=== PATIENT | male | born 1945 | race Caucasian/White ===

== ENCOUNTER → 2017-03-08 | Outpatient (CLI) | payer OTHER ==
[~2017-03-08] MED LIST: ASPEC325 PO; CLB200 PO; EZET10TA63 PO; HYDR-5688 PO; OXYSR10 PO; TIMOLOL OPB; TRAM-10 PO
[2017-03-08 13:59] LABS: BASO % 0.5 %; BASO ABS # 0.04 K/uL (0-0.2); COMPLETE YES; EOS % 2.9 %; HEMATOCRIT 43.3 % (42-52); IG% 0.1 %; LYMPH % 32.8 %; LYMPH ABS # 2.45 K/uL (1.2-3.4); MEAN CORPUSCULAR HEMOGLOBIN 31.2 pg (25-34); MEAN CORPUSCULAR HGB CONC 34.6 g/dl (32-36); MEAN PLATELET VOLUME 10.2 fL (7.4-10.4); MONO % 6.6 %; NEUT % 57.1 %; PLATELET COUNT 219 K/uL (130-400); RED BLOOD COUNT 4.81 M/uL (4.7-6.1); WHITE BLOOD COUNT 7.48 K/uL (4.8-10.8)
[2017-03-08 14:07] LABS: ALT/SGPT 37 U/L (12-78); AST/SGOT 22 U/L (15-37); BLOOD UREA NITROGEN 17 mg/dl (7-18); BUN/CREATININE RATIO 14.6 (10-20); CALCIUM 8.8 mg/dl (8.5-10.1); CARBON DIOXIDE 25 mmol/L (21-32); CHLORIDE 107 mmol/L (98-107); CREATININE 1.16 mg/dl (0.60-1.40); GLUCOSE 126 mg/dl (70-99); POTASSIUM 3.7 mmol/L (3.5-5.1); SODIUM 139 mmol/L (136-145)
[2017-03-08 14:10] LABS: ALKALINE PHOSPHATASE 84 U/L (45-117); CHOLESTEROL 158 mg/dl (0-200); HDL CHOLESTEROL 33 mg/dl; LDL CHOLESTEROL CALCULATED 63 mg/dl; TRIGLYCERIDES 312 mg/dl (0-150); VERY LOW DENSITY LIPOPROT CALC 62 mg/dl
[2017-03-08 14:11] LABS: CHOLESTEROL/HDL RATIO 4.8
== END | disposition home or self-care (01) ==
LOC: C.LABSPEC 12:52
PROVIDERS: ATTEND Family Medicine
DX: E78.2 Mixed hyperlipidemia (principal); I10 Essential (primary) hypertension